=== PATIENT | female | born 1940 | race Caucasian/White ===

== ENCOUNTER 2025-05-07 07:40 | Emergency (ER) | payer BC, MEDICARE ==
[~2025-05-07] VITALS: Ht 157.5 cm; Wt 71.8 kg
--- NOTE | 2025-05-07 07:49 | ELECTROCARDIOGRAPH REPORT ---
[facility] Test Date: 2025-05-07 Test Time: 07:48:30 Pat Name: MORGAN DELA CRUZ Department: [facility] Patient ID: [facility]-[id number] Room: Gender: F Juice Scaleman: : 1940 Requested By: TRUPTI BELLAMY Order Number: [id number] Reading MD: Dr. MEKA Mustafa Measurements Intervals Maribel Rate: 93 P: 55 IA: 134 QRS: 9 QRSD: 93 T: 36 QT: 363 QTc: 452 Interpretive Statements Sinus rhythm Electronically Signed On 05-08-2025 18:41:[address] MEKA Mustafa Please click the below link to view image of tracing.
[2025-05-07 07:55] VITALS: TEMP 97.8
[2025-05-07 08:01] LABS: MEAN PLATELET VOLUME 8.0 FL (7.4-10.4); RED CELL DISTRIBUTION WIDTH 14.1 % (11.5-14.5)
[2025-05-07 08:26] LABS: CREATININE 0.88 MG/DL (0.40-0.90); PRO BRAIN NATRIURETIC PEPTIDE 148 PG/ML (0-450); TOTAL CARBON DIOXIDE 26.5 MMOL/L (24-32); eCRCL 39 ML/MIN; eGFR 62 ML/MIN
--- NOTE | 2025-05-07 08:41 | RADIOLOGY REPORT ---
CHEST RADIOGRAPH Indication: CP Technique: Single frontal view of the chest was obtained COMPARISON: None FINDINGS: Lines and Tubes: None Lungs: Clear Pleura: No effusion. No pneumothorax. Cardiomediastinal contours: Unremarkable Bones: Unremarkable IMPRESSION: No acute disease.
--- NOTE | 2025-05-07 09:30 | RADIOLOGY REPORT ---
CLINICAL HISTORY: Severe headache, near-syncope TECHNIQUE: Helical scanning was performed of the head from the skull base to the vertex. Multiplanar reconstructions were performed. This exam was performed according to our departmental dose optimization program. Up-to-date CT equipment and radiation dose reduction techniques are utilized as appropriate. CTDI 58 DLP 950 COMPARISON: None FINDINGS: There is no evidence for acute intracranial hemorrhage, acute ischemic changes, mass, mass effect, or extra-axial fluid collection. There is no hydrocephalus or midline shift. There is no effacement of the cerebral sulci and basal subarachnoid cisterns. The mora-white matter differentiation is well maintained. There is mild brain volume loss and [id number] chronic small vessel ischemic change. The imaged paranasal sinuses are clear. IMPRESSION: NO ACUTE INTRACRANIAL ABNORMALITY SEEN.
--- NOTE | 2025-05-07 09:30 | Physician Documentation ---
History of Present Illness ~ General Chief Complaint: Multiple Medical Complaints Stated Complaint: PALPATATIONS Time Seen by MD: 08:15 Primary Medical Doctor: INOCENCIO MARINELLI Mode of Arrival: Wheelchair History of Present Illness Initial Comments 84-year-old female who presents with multiple complaints. She reports multiple concerns includin. Headaches. For the past 3 days she reports having a severe headache. She states it is located in the back of her head and wraps over the top. She did take some aspirin and Excedrin today and now it feels better. No associated vis ual changes or dizziness. 2. Chronic pain in her right side. She states that she has chronic pain in her right knee, hip, and shoulder. She feels like she needs joint replacements. Her says I do not want her to leave today without medication to treat this pain. She tells me that Excedrin and aspirin and Tylenol do not help. No new or different symptoms related to this today. 3. She reports palpitations. She tells me when she stands up her heart rate temporarily goes really fast. She states sometimes it seems like it is up to 160. It generally improves quickly after she stands for a minute. She denies any current palpitations. She recently moved here and does not have a primary care doctor. Medication Reconciliation Allergies: Coded Allergies: No Known Allergies (Unverified , 08/13/13) Past Medical History Past Medical History: CVA/TIA/Stroke, Congestive Heart Failure Past Surgical History: other Other Past Family History: brain tumor, stomach CA, prostate CA Alcohol Use: None Drug Use: none Lives with: Spouse Lives In: Home Occupation: retired Review of Systems Constitutional: Denies: fever Cardiovascular: Reports: palpitations Musculoskeletal: Reports: pain, joint pain Physical Exam Physical Exam Vital Signs: Temperature: 97.8, Heart Rate: 82, Respiratory Rate: 16, Pulse Oximetry: 99, Weight: 71.820 Oxygen Flow Rate: 0 Physical Exam General: This is a pleasant and overall well-appearing older woman, at bedside HEENT: Atraumatic, mild tenderness on palpation of the posterior scalp and muscles of the neck around the occiput, oropharynx is moist Heart: Regular rate and rhythm, appears sinus rhythm on the monitor, normal- appearing peripheral perfusion Lungs: Clear breath sounds bilateral, normal work of breathing, normal oxygen saturation on room air Abdomen: Soft, nondistended, nontender all quadrants Extremities: Warm and well-perfused Neuro: Alert and oriented Psychiatric: Calm and cooperative with exam Progress Results/Orders Results/Orders Orders - TRUPTI BELLAMY MD Chest,Single View (05/07/25 07:43) Monitor (05/07/25 07:43) Saline Lock (05/07/25 07:43) Oxygen (05/07/25 07:43) Hs Troponin I W Calculations (05/07/25 10:43) Orthostatic Vs (05/07/25 ) Ct Head (05/07/25 09:00) Completed Orders - TRUPTI BELLAMY MD Chest,Single View (05/07/25 07:43) Cbc/Diff (05/07/25 07:43) BMP (05/07/25 07:43) PBNP (05/07/25 07:43) Electrocardiogram (05/07/25 07:43) Hs Troponin I W Calculations (05/07/25 07:43) Hs Troponin I W Calculations (05/07/25 09:43) Ct Head (05/07/25 09:00) Vital Signs 05/07/25 05/07/25 05/07/25 05/07/25 07:55 09:00 09:30 09:42 Temp 97.8 Pulse 82 72 72 76 77 Resp 16 18 B/P (MAP) 153/73 (99) 156/78 153/79 154/84 Pulse Ox 99 97 O2 Flow Rate 0 0 Laboratory Tests Test 05/07/25 07:49 05/07/25 09:51 White Blood Count 9.4 Red Blood Count 4.47 Hemoglobin 12.2 Hematocrit 36.9 Mean Corpuscular Volume 82.7 Mean Corpuscular Hemoglobin 27.3 Mean Corpuscular Hemoglobin Concent 33.0 Red Cell Distribution Width 14.1 Platelet Count 321 Mean Platelet Volume 8.0 Neutrophils (%) (Auto) 72.7 Lymphocytes (%) (Auto) 18.5 L Monocytes (%) (Auto) 6.9 Eosinophils (%) (Auto) 1.1 Basophils (%) (Auto) 0.8 Neutrophils # (Auto) 6.8 Lymphocytes # (Auto) 1.7 Monocytes # (Auto) 0.6 Eosinophils # (Auto) 0.1 Basophils # (Auto) 0.1 CBC Comment Sodium Level 141 Potassium Level 3.8 Chloride Level 105 Carbon Dioxide Level 26.5 Anion Gap 10 Blood Urea Nitrogen 17 Creatinine 0.88 Estimated GFR/1.73 m2 62 BUN/Creatinine Ratio 19.3 Glucose Level 153 H Calcium Level 9.2 Troponin I High Sensitivity 13 13 Pro-B-Type Natriuretic Peptide 148 Albumin 3.4 Chemistry Comments Troponin I High Sens Percent Delta 0 Troponin I Hi Sens Absolute Change 0 EKG/XRAY/CT/US/VASC/MRI Chest X-Ray : Additional Comments I personally interpreted the x-ray, and it shows: No focal consolidation, mediastinal widening, or pneumothorax CT : Impression I personally interpreted the CT scan, and this shows no intracranial hemorrhage Medical Decision Making Additional information obtaine: family Findings Further information obtained from Differential Diagnosis Differential includes chronic pain, chronic pain exacerbation, palpitations including dysrhythmia, anxiety, orthostatic tachycardia, dehydration, electrolyte derangement. Headache includes intracranial hemorrhage, tension headache, stress reaction Assessment The patient presents with multiple complaints as above. Here in the ED she is well-appearing and her symptoms seem minimal at this time. Her workup was unremarkable. No evidence of intracranial hemorrhage or other dangerous cause of her headache. Normal orthostatic vital signs. Labs unremarkable. Re-evaluation I had a long discussion with the patient regarding all of her testing. I did discuss the challenge of managing chronic pain from the emerge ncy department. After this discussion she felt comfortable going home with a plan to try and follow up with an outpatient clinic and orthopedic clinic. Departure Time of Disposition: 10:19 Disposition: 01 HOME / SELF CARE / HOMELESS Impression: Primary Impression: Tension headache Additional Impression: Pain of right lower extremity Condition: Stable Referrals: NO PRIMARY CARE PROVIDER (PCP) Education Educated: Patient Educated regarding: diagnosis, treatment, need for follow up Signature Scribe Signature: na Attestation: TRUPTI Bailey MD May 07, 2025 09:30
[2025-05-07 10:42] VITALS: BP 141/87; PULSE 76; RESP 14; O2SAT 96
== END 2025-05-07 10:47 | disposition home or self-care (01) ==
LOC: ER 07:40
DX: G44.209 Tension-type headache, unspecified, not intractable (principal); M79.604 Pain in right leg; G89.29 Other chronic pain; I50.9 Heart failure, unspecified; Z86.73 Personal history of transient ischemic attack (TIA), and cerebral infarction without residual deficits
CPT/HCPCS: 36415; 70450; 71045; 80048; 83880; 84484; 85025; 93005; 99285; A6253